=== PATIENT | female | born 1985 | race African-American/Black ===

== ENCOUNTER 2019-07-20 08:45 | Outpatient (CLI) | payer OTHER ==
--- NOTE | 2019-07-20 11:17 | MRI ---
MRI Cervical spine without contrast: HISTORY: Back pain with pain rating down right arm. Associated numbness and tingling. COMPARISON: None FINDINGS: Motion artifact is present on the sagittal T2-weighted images. The craniocervical junction is unremarkable. No significant cord signal abnormality. Paravertebral soft tissues have a normal appearance and normal signal intensity. There is a subcentimeter focus of increased T1 and T2-weighted signal intensity focus in the T1 verte bral body which may represent focal fat versus small hemangioma. C1-2:No significant stenosis. C2-3: There is no disc bulge or disc herniation. The central spinal canal and neural foramina are pat ent. C3-4: Mild facet degenerative changes are seen greater on the left. This results in mild left-sided n eural foraminal narrowing. The right neural foramen and central canal are patent. C4-5: Minimal disc osteophyte complex is present. This results in slight effacement of the ventral dowd barachnoid space. Neural foramina are patent. Mild endplate degenerative changes are present. C5-6: Disc osteophyte complex is present resulting slight effacement of the ventral subarachnoid spac e. There is slight flattening of the anterior aspect of the spinal cord. Left neural foramen is patent, but there is mild right-sided neural foraminal narrowing. Mild endplate degenerative changes are present. C6-7: Minimal disc osteophyte complex is present. Uncinate process hypertrophy is present on the righ t. Moderate right-sided neural foraminal narrowing is present. The left neural foramen is patent. Central spinal canal is patent. C7-T1: There is no disc bulge or disc herniation. The central spinal canal and neural foramina are pa tent. IMPRESSION: Mild degenerative changes in the cervical spine.
== END 2019-07-20 08:46 | disposition home or self-care (01) ==
LOC: BICMRI 08:45
PROVIDERS: ATTEND Family Medicine
DX: M47.22 Other spondylosis with radiculopathy, cervical region (principal)
CPT/HCPCS: 72141